=== PATIENT | female | born 1965 | race Caucasian/White ===

== ENCOUNTER → 2017-02-14 | Day surgery (SDC) | payer OTHER ==
[2017-02-10 17:53] VITALS: BMI 29.1
[~2017-02-14] MED LIST: BUPIVACAINE HCL/PF (5 MG/ML) 30 ML VIAL IJ ONE; BUPIVACAINE HCL/PF 0.5% (5MG/ML) 10 ML VIAL ONE; CEFAZOLIN 1 GM/D5W 50 ML IVPB ONE; CELECOXIB 200 MG CAPSULE PO ONE; DEXAMETHASONE SOD PHOSPHATE 4 MG/1 ML VIAL ONE; DEXAMETHASONE SOD PHOSPHATE/PF 10 MG/ML SDV ONE; EPINEPHrine/PF 1 MG/1 ML (1:1,000) AMPULE ONE; GABAPENTIN 300 MG CAPSULE (FP) PO ONE; LIDOCAINE 1% P/F 10 MG/ML VIAL ONE; LIDOCAINE HCL/PF 2% SDV 5ML VIAL ONE; MIDAZOLAM HCL 2 MG/2 ML SINGLE DOSE VIAL ONE; ONDANSETRON 4 MG/2 ML VIAL ONE; PHENYLEPHRINE HCL 10 MG/1 ML SINGLE DOSE VIAL ONE; PROPOFOL 20 ML ONE; ROPIVACAINE HCL 0.5% 30ML VIAL ONE; ROPIVICAINE 0.2%/MORPH PF/KETOROLAC - 51ML DISP.SYRINGE IA ONE; SODIUM CHLORIDE 0.9% P/F 10 ML VIAL IJ ONE; SUCCINYLCHOLINE CHLORIDE 200 MG/10 ML VIAL ONE; TRANEXAMIC ACID 1000 MG/10 ML VIAL IVPUSH ONE; TRANEXAMIC ACID 1000 MG/10 ML VIAL ONE; VANCOMYCIN 1,000 MG VIAL (RESTRICTED TO ID ONLY) ONE; ceFAZolin SODIUM 1 GM VIAL ONE; ePHEDrine SULFATE 50 MG/1 ML AMPULE ONE; oxyCODONE HCL 10 MG SUSTAINED ACTING TABLET PO ONE
[2017-02-14 07:05] VITALS: BP 136/90; PULSE 84; TEMP 98.3
== END | disposition home or self-care (01) ==
LOC: FM/S 06:12 → UNDOADMIN 06:12 → FASU 06:14 → EDSTATUS 08:00
PROVIDERS: ATTEND Student in an Organized Health Care Education/Training Program
PROC: 0SRB0JZ Replacement of Left Hip Joint with Synthetic Substitute, Open Approach (ICD-10-PCS; principal; 2017-02-14)
DX: M16.12 Unilateral primary osteoarthritis, left hip (principal); Z53.8 Procedure and treatment not carried out for other reasons

== ENCOUNTER 2017-02-17 06:20 | Inpatient (IN) | payer OTHER ==
[2017-02-17] MEDS ORDERED: oxyCODONE HCL 10 MG SUSTAINED ACTING TABLET PO ONE (06:38)
[2017-02-17] MEDS ORDERED: GABAPENTIN 300 MG CAPSULE (FP) PO ONE (06:38)
[2017-02-17] MEDS ORDERED: ROPIVICAINE 0.2%/MORPH PF/KETOROLAC - 51ML DISP.SYRINGE IA ONE ×2 (06:38→12:31)
[2017-02-17] MEDS ORDERED: CELECOXIB 200 MG CAPSULE PO ONE (06:38)
[2017-02-17] MEDS ORDERED: CEFAZOLIN 1 GM/D5W 50 ML IVPB ONE (06:38)
[2017-02-17] MEDS ORDERED: TRANEXAMIC ACID 1000 MG/10 ML VIAL IVPUSH ONE ×2 (06:38→12:30)
[2017-02-17 06:41] VITALS: BMI 29.1
--- NOTE | 2017-02-17 07:57 | HP ---
Admitting History and Physical - Admission Chief Complaint: Left hip OA x years History of Present Illness: 52 year old female presents today with longstanding history of left hip osteoarthritis. Patient complains of pain, stiffness, difficulty ambulating and limited ROM. She has failed conservative treatment including PO medication, exercise and activity modification. At this point patient would like to proceed with a left total hip arthroplasty (MAKOplasty). History Source: Patient - Past Medical History Cardiovascular: Yes: Hyperlipdemia ...LMP Comment: LMP 2009 Psych: Yes: Anxiety, Depression - Past Surgical History Additional Past Surgical History: See written H&P - Smoking History Smoking history: Current every day smoker Have you smoked in the past 12 months: Yes Aproximately how many cigarettes per day: 15 - Alcohol/Substance Use Hx Alcohol Use: No Home Medications - Allergies Allergies/Adverse Reactions: Allergies Allergy/AdvReac Type Severity Reaction Status Date / Time No Known Drug Allergies Allergy Verified 02/17/17 06:34 - Home Medications Home Medications: Ambulatory Orders Alprazolam [Xanax] 1 mg PO HS 09/01/16 Atorvastatin Ca [Lipitor] 10 mg PO HS 09/01/16 Escitalopram Oxalate [Lexapro -] 10 mg PO HS 09/01/16 Hydromorphone HCl [Dilaudid] 2 mg PO BID 09/01/16 Methylphenidate HCl [Ritalin LA] 20 mg PO BID 09/01/16 Review of Systems - Review of Systems Musculoskeletal: reports: Decreased ROM, Joint Pain (Left hip) Physical Examination Vital Signs: Vital Signs Temperature 98.3 F 02/17/17 06:37 Pulse Rate 68 02/17/17 06:37 Respiratory Rate 18 02/17/17 06:37 Blood Pressure 110/70 02/17/17 06:37 O2 Sat by Pulse Oximetry (%) 96 02/17/17 06:41 Constitutional: Yes: Well Nourished, No Distress Eyes: Yes: Conjunctiva Clear HENT: Yes: Atraumatic, Normocephalic Neck: Yes: Supple Cardiovascular: Yes: Regular Rate and Rhythm Respiratory: Yes: Regular Gastrointestinal: Yes: Soft ...Rectal Exam: Yes: Deferred Musculoskeletal: Yes: Joint Stiffness (Left hip) Assessment/Plan 52 year old female with longstanding left hip osteoarthritis. Patient has failed all conservative treatment options. Proceed with a left total hip arthroplasty (MAKOplasty.)
[2017-02-17] MEDS ORDERED: VANCOMYCIN 1,000 MG VIAL (RESTRICTED TO ID ONLY) IVPB ONE (12:30)
[2017-02-17] MEDS ORDERED: MAGNESIUM HYDROX 2400MG/30ML ORAL SUSPENSION 30 ML CUP PO PRN (13:38)
[2017-02-17] MEDS ORDERED: ONDANSETRON 4 MG/2 ML VIAL IVPB PRN (13:38)
[2017-02-17] MEDS ORDERED: MAG HYDROX/AL HYDROX/SIMETH 30 ML UNIT-DOSE CUP PO PRN (13:38)
--- NOTE | 2017-02-17 13:38 | OP ---
Operative Note - Note: Operative Date: 02/17/17 Pre-Operative Diagnosis: left hip OA Operation: left DA ZENOBIA Post-Operative Diagnosis: Same as Pre-op Surgeon: Tomas Hays Inner Tube Cutter: Yvonne Graham Anesthesia: Spinal Estimated Blood Loss (mls): 300
[2017-02-17] MEDS ORDERED: KETOROLAC TROMETHAMINE 30 MG/1 ML VIAL IVPUSH SCH (13:45)
[2017-02-17] MEDS ORDERED: LACTATED RINGERS SOLUTION 1,000 ML IV SCH (13:45)
[2017-02-17] MEDS ORDERED: traMADol HCL 50 MG TABLET PO SCH (13:45)
[2017-02-17] MEDS ORDERED: ONDANSETRON 4 MG/2 ML VIAL IVPUSH PRN (14:09)
[2017-02-17] MEDS ORDERED: ACETAMINOPHEN 1000 MG/100 ML VIAL (NON FORMULARY) IVPB ONE (14:09)
[2017-02-17] MEDS: ACETAMINOPHEN 325 MG TABLET (FP) PO SCH ×2 (14:20→20:34)
[2017-02-17] MEDS: CEFAZOLIN 1 GM/D5W 50 ML IVPB SCH (17:58)
[2017-02-17] MEDS: oxyCODONE HCL 5 MG TABLET PO PRN ×2 (18:07→23:49)
[2017-02-17] MEDS: KETOROLAC TROMETHAMINE 30 MG/1 ML VIAL IVPUSH SCH (20:34)
[2017-02-17] MEDS: traMADol HCL 50 MG TABLET PO SCH (20:35)
[2017-02-17] MEDS: ESCITALOPRAM OXALATE 10 MG TABLET (FP) PO SCH (21:31)
[2017-02-17] MEDS: GABAPENTIN 300 MG CAPSULE (FP) PO SCH (21:31)
[2017-02-17] MEDS: ASCORBIC ACID 500 MG TABLET (FP) PO SCH (21:31)
[2017-02-17] MEDS: HYDROmorphone HCL 2 MG TABLET PO SCH (21:32)
[2017-02-17] MEDS: ATORVASTATIN CA 10 MG TABLET (FP) PO SCH (21:32)
[2017-02-17] MEDS: FERROUS SO4 325 MG TABLET (FP) PO SCH (21:32)
[2017-02-17] MEDS: CELECOXIB 200 MG CAPSULE PO SCH (21:32)
[2017-02-17] MEDS: oxyCODONE HCL 10 MG SUSTAINED ACTING TABLET PO SCH (21:33)
[2017-02-17] MEDS: ALPRAZolam 0.25 MG TABLET PO SCH (21:33)
[2017-02-17] MEDS: SENNOSIDES/DOCUSATE COMBO (SENNA PLUS) TABLET (UD) PO SCH (21:33)
[2017-02-17] MEDS ORDERED: oxyCODONE HCL 10 MG SUSTAINED ACTING TABLET PO SCH (22:00)
[2017-02-17] MEDS ORDERED: METHYLPHENIDATE HCL 20 MG PO SCH (22:00)
[2017-02-18] MEDS: KETOROLAC TROMETHAMINE 30 MG/1 ML VIAL IVPUSH SCH ×2 (02:17→08:00)
[2017-02-18] MEDS: ACETAMINOPHEN 325 MG TABLET (FP) PO SCH ×4 (02:19→20:37)
[2017-02-18] MEDS: CEFAZOLIN 1 GM/D5W 50 ML IVPB SCH (02:19)
[2017-02-18] MEDS: traMADol HCL 50 MG TABLET PO SCH ×4 (02:20→20:37)
[2017-02-18] MEDS: ASPIRIN 325 MG TABLET PO SCH (08:00)
[2017-02-18 08:36] LABS: CALCIUM 8.6 mg/dl (8.4-10.2); COCKROFT - GAULT 140.5645; CREATININE 0.6 mg/dl (0.6-1.3)
[2017-02-18 08:38] LABS: MCHC 33.7 g/dl (32.0-36.0); MEAN CELL VOLUME 89.2 fl (80-96); MEAN PLT VOLUME 8.8 fl (7.5-11.1); PLATELET COUNT 321 K/MM3 (134-434); RDW 12.6 % (11.6-15.6); WHITE BLOOD COUNT 16.1 K/mm3 (4.0-10.0)
[2017-02-18] MEDS: FERROUS SO4 325 MG TABLET (FP) PO SCH ×2 (09:00→22:14)
[2017-02-18] MEDS: HYDROmorphone HCL 2 MG TABLET PO SCH ×2 (09:59→22:13)
[2017-02-18] MEDS: ASCORBIC ACID 500 MG TABLET (FP) PO SCH ×2 (10:00→22:13)
[2017-02-18] MEDS: SENNOSIDES/DOCUSATE COMBO (SENNA PLUS) TABLET (UD) PO SCH ×2 (10:00→22:11)
[2017-02-18] MEDS: GABAPENTIN 300 MG CAPSULE (FP) PO SCH ×2 (10:00→22:11)
[2017-02-18] MEDS: oxyCODONE HCL 10 MG SUSTAINED ACTING TABLET PO SCH ×2 (10:00→22:11)
[2017-02-18] MEDS: PANTOPRAZOLE 40 MG TABLET (FP) PO SCH (10:01)
[2017-02-18] MEDS: MULTIVITAMINS (DAILY MVI) TABLET (FP) PO SCH (10:01)
[2017-02-18] MEDS: CELECOXIB 200 MG CAPSULE PO SCH ×2 (10:59→22:14)
--- NOTE | 2017-02-18 11:21 | PN ---
Progress Note (short form) - Note Progress Note: Pt seen and examined. Comfortable. AVSS Selected Entries 02/18/17 02/18/17 05:38 08:37 Temperature 98.4 F Pulse Rate 73 Respiratory 18 18 Rate Blood Pressure 115/80 O2 Sat by Pulse 97 Oximetry (%) Oxygen Delivery Room Air Method Laboratory Tests 02/18/17 02/18/17 07:00 07:00 WBC 16.1 H Hgb 11.7 Hct 34.8 Plt Count 321 Sodium 134 L Potassium 4.2 Chloride 102 Carbon Dioxide 27 Anion Gap 5 L BUN 14 Creatinine 0.6 Random Glucose 112 H Calcium 8.6 Gen: NAD RLE: c/d/i, NVID A/P 52yo female POD#1 s/p L ZENOBIA 1. PT/OOB - WBAT RLE 2. Plan for d/c home tomorrow
[2017-02-18] MEDS: oxyCODONE HCL 5 MG TABLET PO PRN (14:30)
--- NOTE | 2017-02-18 17:23 | PN ---
Progress Note (short form) - Note Progress Note: S: Pt. very comfortable. No complaints O: VAS 1-610 A/P: pod #1 s/p left thr. Pt. doing very well 1. continue pain meds as ordered 2. no anesthetic complications
[2017-02-18] MEDS: ALPRAZolam 0.25 MG TABLET PO SCH (22:12)
[2017-02-18] MEDS: ESCITALOPRAM OXALATE 10 MG TABLET (FP) PO SCH (22:12)
[2017-02-18] MEDS: ATORVASTATIN CA 10 MG TABLET (FP) PO SCH (22:13)
[2017-02-19] MEDS: ACETAMINOPHEN 325 MG TABLET (FP) PO SCH ×2 (02:23→09:00)
[2017-02-19] MEDS: traMADol HCL 50 MG TABLET PO SCH ×2 (02:23→08:00)
[2017-02-19 06:15] VITALS: BP 114/60; PULSE 65; TEMP 98.3
[2017-02-19] MEDS: ASPIRIN 325 MG TABLET PO SCH (08:00)
[2017-02-19 08:11] LABS: MEAN CELL VOLUME 88.3 fl (80-96); MEAN PLT VOLUME 8.5 fl (7.5-11.1); PLATELET COUNT 234 K/MM3 (134-434); RDW 12.4 % (11.6-15.6); WHITE BLOOD COUNT 10.1 K/mm3 (4.0-10.0)
[2017-02-19] MEDS: MULTIVITAMINS (DAILY MVI) TABLET (FP) PO SCH (10:00)
[2017-02-19] MEDS: oxyCODONE HCL 10 MG SUSTAINED ACTING TABLET PO SCH (10:00)
[2017-02-19] MEDS: CELECOXIB 200 MG CAPSULE PO SCH (10:00)
[2017-02-19] MEDS: SENNOSIDES/DOCUSATE COMBO (SENNA PLUS) TABLET (UD) PO SCH (10:00)
[2017-02-19] MEDS: GABAPENTIN 300 MG CAPSULE (FP) PO SCH (10:00)
[2017-02-19] MEDS: ASCORBIC ACID 500 MG TABLET (FP) PO SCH (10:00)
[2017-02-19] MEDS: FERROUS SO4 325 MG TABLET (FP) PO SCH (10:00)
[2017-02-19] MEDS: PANTOPRAZOLE 40 MG TABLET (FP) PO SCH (10:00)
[2017-02-19] MEDS: HYDROmorphone HCL 2 MG TABLET PO SCH (10:00)
--- NOTE | 2017-02-19 13:17 | PN ---
Progress Note (short form) - Note Progress Note: Pt seen and examined. Comfortable. AVSS Selected Entries 02/19/17 02/19/17 06:00 06:14 Temperature 98.3 F Pulse Rate 65 Respiratory 18 Rate Blood Pressure 114/60 O2 Sat by Pulse 95 Oximetry (%) Laboratory Tests 02/19/17 07:42 WBC 10.1 H D Hgb 10.1 L D Hct 29.9 L Plt Count 234 D Gen: NAD RLE: c/d/i, NVID A/P 52yo female POD#2 s/p L ZENOBIA 1. PT/OOB - WBAT RLE 2. d/c home today
--- NOTE | 2017-02-19 13:30 | DS ---
Physical Examination Vital Signs: Vital Signs Temperature 98.3 F 02/19/17 06:00 Pulse Rate 65 02/19/17 06:00 Respiratory Rate 18 02/19/17 06:00 Blood Pressure 114/60 02/19/17 06:00 O2 Sat by Pulse Oximetry (%) 95 02/19/17 06:14 Labs: CBC, BMP 02/19/17 07:42 02/18/17 07:00 Discharge Summary Reason For Visit: OSTEOARTHRITIS OF LEFT HIP Procedures: Principal: total hip replacement Hospital Course: Admitted for elective surgery. Procedure performed without complications. Pt received postoperative antibiotic prophylaxis and DVT ppx. Ambulated with physical therapy. Stable for discharge home with outpatient followup. Condition: Stable - Instructions Diet, Activity, Other Instructions: Dr Hays - Hip Replacement Instructions Keep the Aquacel dressing on until removed by Dr. Hays in 10-14 days - it is antibacterial and waterproof and you can shower with it on. Call the office for a follow-up appointment with Dr. Hays in 10-14 days. [phone] Take one Aspirin 325mg daily for 6 weeks to prevent blood clots in your legs. Take one Pantoprazole 40mg daily for 6 weeks to protect against heartburn and ulcers. Take Celebrex 200mg twice daily for 30 days to reduce swelling and inflammation. For pain: Continue taking Dilaudid twice a day, the same as before surgery. In addition, take: 1 -2 Percocet tablets every 4 hours as needed. Make sure to take an [id number] stool softener daily. Take a multivitamin as well as an additional vitamin C supplement daily. Make sure you eat plenty of protein daily. You can also add in a protein shake between meals. Activity: You can put as much weight on the operative leg as you want. For the first 6 weeks, all you need to do is walk around the house, go up/down stairs, and sit down/get up. After 6 weeks when everything is healed (and bone has grown into the implant) you will be sent for more intensive outpatient physical therapy. Always use a walker or cane for balance and to prevent falls. Disposition: HOME - Home Medications Comprehensive Discharge Medication List: Ambulatory Orders Alprazolam [Xanax] 1 mg PO HS 09/01/16 Atorvastatin Ca [Lipitor] 10 mg PO HS 09/01/16 Escitalopram Oxalate [Lexapro -] 10 mg PO HS 09/01/16 Hydromorphone HCl [Dilaudid] 2 mg PO BID 09/01/16 Methylphenidate HCl [Ritalin LA] 20 mg PO BID 09/01/16 Ascorbic Acid [Vitamin C -] 500 mg PO BID tablet 02/19/17 Aspirin [ASA -] 325 mg PO DAILY@0800 #40 tablet 02/19/17 Celecoxib [CeleBREX -] 200 mg PO BID #60 tab 02/19/17 Hydromorphone [Dilaudid -] 2 mg PO BID #60 tablet MDD 2 02/19/17 Multivitamins [Multivit ([facility] Form[facility])] 1 tab PO DAILY tab 02/19/17 Oxycodone HCl/Acetaminophen [Percocet 5-325 mg Tablet] 1 - 2 tab PO Q4H PRN #60 tablet MDD 10 02/19/17 Pantoprazole Sodium [Protonix -] 40 mg PO DAILY #40 tab 02/19/17 Sennosides/Docusate Sodium [Pericolace -] 2 tablet PO BID tablet 02/19/17
--- NOTE | 2017-02-23 13:19 | PATH ---
Surgical Pathology Report Patient Name: JACQUELINE DE OLIVEIRA Med. Rec. #: [id number] /Age/Gender: 1965 (Age: 52) / F Account: [id number] Location: [facility] MED-SURG Taken: 02/17/2017 Received: 02/17/2017 Reported: 02/23/2017 Physicians: Tomas Hays M.D. Specimen(s) Received LEFT FEMORAL HEAD Clinical History Osteoarthritis left hip Final Diagnosis FEMORAL HEAD, LEFT, TOTAL HIP REPLACEMENT: DEGENERATIVE JOINT DISEASE. Electronically Signed Savanna Alfaro M.D. Gross Description Received in formalin, labeled "left femoral head," is a 4.3 x 4.2 x 3.3 cm. femoral head with no femoral neck attached. The margin of resection is smooth. No areas of eburnation are identified. The articular surface is abdi-yellow and diffusely granular. The underlying trabecular bone is yellow and hard. A counter sales representative section is submitted in one cassette, following decalcification. 02/18/201702/18/2017
--- NOTE | 2017-04-01 00:47 | OP ---
DATE OF OPERATION: 02/17/2017 PREOPERATIVE DIAGNOSIS: Left hip osteoarthritis. POSTOPERATIVE DIAGNOSIS: Left hip osteoarthritis. PROCEDURE: Left total hip replacement via a direct anterior approach. ATTENDING: Dorothy Hays M.D. AGRICULTURE SALES ACCOUNT MANAGER: Janae Odonnell ANESTHESIA: Spinal plus sedation. ESTIMATED BLOOD LOSS: 300 mL. COMPLICATIONS: None. SPECIMENS: Resected bone was sent for pathology and analysis. DISPOSITION: The patient was sent to the PACU in stable condition. IMPLANTS USED: Shelbie Accolade size 4 femoral component, 48-mm Tritanium acetabular component, MDM bipolar head ball. INDICATION: This is a 52-year-old female who presented to the office with severe left hip pain. She was seen and examined by Dr. Hays and diagnosed with severe left hip osteoarthritis. She was initially treated nonoperatively with injections of medication and physical therapy but continued to have severe pain and ambulatory dysfunction. She was subsequently indicated for a left total hip replacement via a direct anterior approach. The risks, benefits, and alternatives to the procedure were explained to the patient in great detail, and she elected to proceed with the surgery. On the day of surgery, the patient was taken to the operating room and placed on the OR table. Spinal anesthesia was administered by the anesthesiologist. The patient was then positioned supine on the table, and all bony prominences were padded. The left lower extremity was then strapped to the arch leg stahl device and it was prepped from the hip to the knee and draped in the usual sterile fashion. The contralateral iliac crest was also prepped and draped in the usual sterile fashion for placement of the Makoplasty reflector arrays. Intravenous antibiotics were then given for infection prophylaxis. The surgical timeout was then performed with the team and the patient's identity, side, site, availability of implants, procedure, and administration of antibiotics were confirmed. An approximately 10-cm longitudinal incision was then made over the tensor fascia marlon muscle 2 cm posterior and lateral to the anterior superior iliac spine. This was then carried down through the subcutaneous tissue. The fascia over the tensor fascia marlon was then incised and Ron retractors were placed around the femoral neck. Crossing branches of the lateral femoral circumflex artery were identified and then cauterized with the Aquamantys bipolar sealing device. An anterior T-shaped capsulotomy was then performed, and the femoral head and neck were visualized. Grade 4 changes were noted diffusely throughout the joint, and there was extensive osteophyte and calcified labrum found at the acetabular rim. Three small stab incisions were then made along the contralateral iliac crest. Three self-drilling Brandan pins were then placed, and the [employer] pelvic array was attached to the contralateral side of the pelvis, reference points on the operative limb were then entered into the robotic device and the limb length discrepancy offset and femoral neck resection level were then calculated by the software. Once this was completed, the femoral neck cut was made at the level previously templated, and the femoral head was removed. Retractors were then placed around the acetabulum and in parts of the labrum were removed. It was noted that there was some calcification of the labrum and periarticular osteophytes. An acetabular checkpoint pin was then placed and we used the [employer] software to register the contours of the acetabulum in the usual sample. The acetabulum was then reamed to the preoperatively templated size using the Henrik robotic arm to a preoperatively determined orientation of 40 degrees of inclination and 20 degrees of anteversion. The Henrik arm was then used to impact the final 48-mm acetabular component in place at the same orientation. This was found to have very good initial fixation and an MDM liner was then placed in the cup. Attention was then turned back to the femur. The left leg was extended, adducted, and externally rotated so that the posterior capsule could be released. A box osteotome was used to remove bone from the lateral femoral neck. A rat tail rasp was used as a canal finder, and the femur was broached sequentially until a solid Press-Fit was achieved. The final stem size 4 corresponded to the preoperatively templated size. Once this was completed, a trial head and neck was placed, and the head was reduced. From here, several different offset head and neck configurations were tested until excellent stability and leg length was obtained. The [employer] robotic device and software was used to quantify these measurements throughout the entire process. All trial components were then removed. The femur was copiously irrigated with pulse lavage and final components were placed. Leg length and stability were checked again and found to be excellent. We elected to proceed with an MDM bipolar head to maximize range of motion and minimize dislocation risk. The wound was then thoroughly irrigated with normal saline. A 3-minute dilute Betadine lavage was performed according to the FONTENOT protocol. The wound was then thoroughly irrigated again with normal saline as was the stab incisions on the contralateral iliac crest. Number 1 Vicryl, number 2 Fiberwire, and 0 V-Loc 180 barbed sutures were used to close the capsulotomy incision was well as the fascia over the tensor fascia marlon. 2-0 V-Loc 90 sutures were used in the subcutaneous tissues. The skin was closed using both 3-0 V-Loc 90 suture and a running subcuticular fashion and Dermabond skin adhesive. The contralateral iliac crest stab incision sites were also irrigated closed with 4-0 Vicryl sutures and Dermabond skin adhesive. Once this was completed, sterile Aquacel dressings were applied to both sites. The patient was then awakened and taken to the PACU in stable condition. DOROTHY HAYS M.D. [id number]
== END 2017-02-19 14:00 | disposition home or self-care (01) | DRG 470 ==
LOC: FM/S 06:20 → EDSTATUS 08:00 → FM/S 14:39
PROVIDERS: ADMIT Student in an Organized Health Care Education/Training Program; ATTEND Student in an Organized Health Care Education/Training Program
PROC: 8E0W0CZ Robotic Assisted Procedure of Trunk Region, Open Approach (ICD-10-PCS; 2017-02-17)
PROC: 0SRB0JA Replacement of Left Hip Joint with Synthetic Substitute, Uncemented, Open Approach (ICD-10-PCS; principal; 2017-02-17 09:50)
DX: M16.12 Unilateral primary osteoarthritis, left hip (principal); E78.5 Hyperlipidemia, unspecified; I10 Essential (primary) hypertension; F41.8 Other specified anxiety disorders; F17.210 Nicotine dependence, cigarettes, uncomplicated
CPT/HCPCS: 36415; 73502-TC-LT; 80048; 85027; 88304-TC; 88311-TC; 94010; 94760; 97116-GP; 97162-PG